=== PATIENT | male | born 1960 | race Hispanic/Latino ===

== ENCOUNTER 2017-08-31 16:21 | Emergency (ER) | payer OTHER ==
[2017-08-31 16:30] VITALS: BP 137/86
--- NOTE | 2017-08-31 17:40 | XRay Report ---
FINAL REPORT EXAM: XR ELBOW 3+V LT HISTORY: fall, extreme elbow pain TECHNIQUE: Three views of the left elbow PRIORS: None. FINDINGS: There is acute traumatic fracture lateral aspect of the elbow joint which appears to be a displaced radial head fracture. Evaluation of detail is somewhat limited due to limitations in positioning. No evidence for joint effusion. IMPRESSION: Acute displaced radial head fracture.
[2017-08-31] MEDS ORDERED: TORADOL IM ONE (17:43)
[2017-08-31] MEDS ORDERED: NORCO 7.5/325 PO ONE (17:43)
[2017-08-31] MEDS ORDERED: FLEXERIL PO ONE (17:43)
--- NOTE | 2017-08-31 18:09 | Emergency Department Report ---
Upper Extremity - HPI Chief Complaint: Extremity Injury, Upper Stated Complaint: FALL, LEFT ARM INJURY Upper Extremity: Left Elbow Occurred When: Today Mechanism: Fall Severity: moderate Symptoms: Yes Pain with Movement, Yes Limited Range of Movement, Yes Swelling, No Deformity, No Numbness, No Weakness, No Laceration or Abrasion Other History: 57 year old male presents to ED with left elbow pain after mechanical fall. patient states he tripped while moving boxes and landed on left arm. patient denies syncope, trauma to head, LOC. patient is stable, neurologically intact and in no acute distress. ED Review of Systems ROS: Stated complaint: FALL, LEFT ARM INJURY Other details as noted in HPI Constitutional: denies: chills, fever Eyes: denies: eye pain, eye discharge, vision change ENT: denies: ear pain, throat pain Respiratory: denies: cough, shortness of breath, wheezing Cardiovascular: denies: chest pain, palpitations Endocrine: no symptoms reported Gastrointestinal: denies: abdominal pain, nausea, diarrhea Genitourinary: denies: urgency, dysuria Musculoskeletal: joint swelling, arthralgia. denies: back pain Skin: denies: rash, lesions Neurological: denies: headache, weakness, numbness, paresthesias, confusion, abnormal gait, vertigo Psychiatric: denies: anxiety, depression Hematological/Lymphatic: denies: easy bleeding, easy bruising ED Past Medical Hx - Past Medical History Hx Diabetes: Yes Additional medical history: hypothyroid - Surgical History Past Surgical History?: Yes Additional Surgical History: bilateral knee, tib-fib - Medications Home Medications: Home Medications Medication Instructions Recorded Confirmed Last Taken Type Meloxicam 7.5 mg PO QAM #7 tablet 08/31/17 Unknown Rx methOCARBAMOL [Robaxin TAB] 500 mg PO TID #21 tab 08/31/17 Unknown Rx Upper Extremity Exam - Exam General: Vital signs noted. No distress. Alert and acting appropriately. Shoulder Exam: Yes Normal Range of Motion in Shoulder, No Shoulder Tenderness, No Clavicle Tenderness, No Shoulder Deformity Arm Exam: No Arm/Humerus Tenderness, No Arm Deformity Elbow: Yes Elbow Tenderness, No Normal Range of Motion in Elbow Forearm: Yes Pain with Pronation, Yes Pain with Supination, No Forearm Tenderness Wrist: Yes Normal ROM in Wrist, No Wrist Tenderness, No Wrist Deformity Hand: No Hand Tenderness, No Hand Deformity CMS Exam: Yes Normal Distal Pulses, Yes Normal Capillary Refill, Yes Normal Distal Sensation, No Broken Skin ED Course Vital Signs 08/31/17 16:27 Temperature 98.1 F Pulse Rate 83 Respiratory 16 Rate Blood Pressure 137/86 O2 Sat by Pulse 97 Oximetry ED Medical Decision Making - Radiology Data Radiology results: report reviewed XR left elbow acute displaced radial head fracture. - Medical Decision Making 57 year old male presents to ED with left elbow pain after fall. patient has acute mildly displaced fracture of radial head. patient will be placed in splint and sling and agrees and understands to follow up with Dr. Thomas tomorrow or tuesday. patient has refused narcotics. patient is stable, neurologically intact and in no acute distress. Critical care attestation.: If time is entered above; I have spent that time in minutes in the direct care of this critically ill patient, excluding procedure time. ED Disposition Clinical Impression: Elbow fracture, left Qualifiers: Encounter type: initial encounter Fracture type: closed Qualified Code(s): S42.402A - Unspecified fracture of lower end of left humerus, initial encounter for closed fracture Disposition: - TO HOME OR SELFCARE Is pt being admited?: No Does the pt Need Aspirin: No Condition: Stable Instructions: Elbow Fracture in Adults (ED), Splint Care (ED) Prescriptions: Meloxicam 7.5 mg PO QAM #7 tablet methOCARBAMOL [Robaxin TAB] 500 mg PO TID #21 tab Referrals: PEPE THOMAS MD [Staff Physician] - 2-3 Days Forms: Work/School Release Form(ED)
== END 2017-08-31 18:49 | disposition home or self-care (01) ==
LOC: ED 16:21
DX: S42.402A Unspecified fracture of lower end of left humerus, initial encounter for closed fracture (principal); E11.9 Type 2 diabetes mellitus without complications; W01.0XXA Fall on same level from slipping, tripping and stumbling without subsequent striking against object, initial encounter; Y93.89 Activity, other specified; Y92.89 Other specified places as the place of occurrence of the external cause; Y99.8 Other external cause status
CPT/HCPCS: 29105; 73070; 96372; 99283; J1885